=== PATIENT | female | born 1970 | race Caucasian/White ===

== ENCOUNTER 2018-07-14 20:27 | Emergency (ER) | payer OTHER, SELFPAY ==
[2018-07-14 20:30] VITALS: BP 109/88; PULSE 103; RESP 22; TEMP 36.8; O2SAT 99
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
[2018-07-14] MEDS: Ondansetron O.D.T. 4 MG TABEF (22:43)
[2018-07-14] MEDS: Doxycycline Hyclate 100 MG CAP PO (22:43)
[2018-07-14] MEDS: Acetaminophen 500 MG TAB 1000 MG PO (22:44)
[2018-07-14] MEDS: Levonorgestrel 1.5 MG KIT/PACKET PO (22:44)
[2018-07-14] MEDS: cefTRIAXone 250 MG VIAL (22:45)
[2018-07-14] MEDS: Fluconazole 150 MG TAB PO (23:31)
[2018-07-14 23:56] VITALS: BP 106/78; PULSE 94; RESP 18; TEMP 37.3; O2SAT 97
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
== END 2018-07-15 00:03 | disposition home or self-care (01) ==
PROVIDERS: Emergency Provider Student in an Organized Health Care Education/Training Program; PCP Family Medicine
DX: T76.21XA Adult sexual abuse, suspected, initial encounter (principal); B37.3 Candidiasis of vulva and vagina; R45.851 Suicidal ideations; F41.8 Other specified anxiety disorders; E31.9 Polyglandular dysfunction, unspecified
CPT/HCPCS: 81025; 99285; J0696